=== PATIENT | male | born 1960 | race Caucasian/White ===

== ENCOUNTER 2019-08-20 01:07 | Outpatient (CLI) | payer OTHER, SELFPAY ==
[2019-08-20 17:34] LABS: SARS-CoV-2 RNA PCR Negative
== END 2019-08-20 01:08 | disposition home or self-care (01) ==
LOC: ANHCOVIDDT 01:07
PROVIDERS: PCP Internal Medicine; Visit Provider Internal Medicine Gastroenterology
DX: Z01.812 Encounter for preprocedural laboratory examination (principal); Z11.59 Encounter for screening for other viral diseases
CPT/HCPCS: 87635; C9803; U0003

== ENCOUNTER 2019-08-22 01:32 | Day surgery (SDC) | payer OTHER, SELFPAY ==
[2019-08-18 15:03] VITALS: BMI 33.0
[2019-08-22 06:59] VITALS: BP 155/65; PULSE 72; RESP 72; TEMP 37.5; O2SAT 100; BMI 33.1
--- NOTE | 2019-08-22 07:18 | P.HP_ITS ---
History of Present Illness History of Present Illness Consent: Risks, benefits, and alternatives have been discussed and questions answered. Patient agrees to proceed with procedure. Chief complaint: neoplasm screening, hx of polyps Narrative: Moise Duogherty is a 59 year old W male referred for screening colonoscopy secondary to history of colonic polyps. Patient underwent a colonoscopy over 7 years ago. He had tubular adenomas and hyperplastic polyps removed at that time. He was sent a letter 2 years ago to return for follow-up put states he had multiple testing being done for lymphadenopathy. Patient lymph node biopsy a PET scans. No definite etiology was determine. There is questionable diagnosis of sarcoidosis. In a PET scan from April of last year there is increased uptake in the sigmoid colon for 2nd pelvis was not followed up upon. Patient has no change in bowel pattern no rectal bleeding no family history of colon polyps or colon cancer. [facility] Past Medical History Medical History (Updated 08/22/19 @ 07:21 by Eugene Menard MD) Contact dermatitis Hypertension Leukopenia unknown etiology - immunology following Meds Home Medications and Allergies Home Medications Medication Instructions Recorded Confirmed Type cetirizine [Zyrtec] 10 mg PO DAILY 08/18/19 08/18/19 History doxycycline hyclate 100 mg PO BID 08/18/19 08/18/19 History guaifenesin [Mucinex] 600 mg PO BID 08/18/19 08/18/19 History hydroxychloroquine 200 mg PO BID 08/18/19 08/18/19 History metoprolol succinate 25 mg PO DAILY 08/18/19 08/18/19 History triamcinolone acetonide 1 applic TOPICAL PRN PRN 08/18/19 08/18/19 History Allergies Allergy/AdvReac Type Severity Reaction Status Date / Time No Known Allergies Allergy Mild Verified 08/22/19 07:15 Exam Const: Orientation/consciousness: patient oriented x3 Resp: Auscultation: clear to auscultation bilaterally Cardio: Rate: regular rate Rhythm: regular rhythm Heart sounds: no murmurs GI: GI Palp: Yes Soft to palpation, No Tenderness to palpation present (GI), Yes No hepatosplenomegaly present and No Palpable mass present Auscultation: normal bowel sounds Neuro: General: patient oriented x3 and no focal motor deficits Extrem: General: no pedal edema Assessment and Plan Additional Plan screening colonoscopy secondary history of colonic polyps and an abnormal PET scan with increased uptake in the sigmoid colon
--- NOTE | 2019-08-22 07:29 | WPDANESEPPF ---
Anes - Initial Pre Proc Eval Procedure: Operation Date: 08/22/19 08:30 Proposed Procedures p Screening Colonoscopy - Eugene Menard MD Date/Time: 08/22/19 07:29 Surgeon: Eugene Menard MD Pre Op Diagnosis: neoplasm screening, hx of polyps Patient Data Age: 59 Gender: M Height: 1.68 m Weight: 93.1 kg Last Vital Signs Temp 37.5 C 08/22/19 06:59 Pulse 72 08/22/19 06:59 Resp 72 H 08/22/19 06:59 BP 155/65 H 08/22/19 06:59 Pulse Ox 100 08/22/19 06:59 Allergies Allergy/AdvReac Type Severity Reaction Status Date / Time No Known Allergies Allergy Mild Verified 08/22/19 07:15 Home Medications Medication Instructions Recorded Confirmed Type cetirizine [Zyrtec] 10 mg PO DAILY 08/18/19 08/18/19 History doxycycline hyclate 100 mg PO BID 08/18/19 08/18/19 History guaifenesin [Mucinex] 600 mg PO BID 08/18/19 08/18/19 History hydroxychloroquine 200 mg PO BID 08/18/19 08/18/19 History metoprolol succinate 25 mg PO DAILY 08/18/19 08/22/19 History triamcinolone acetonide 1 applic TOPICAL PRN PRN 08/18/19 08/18/19 History Patient hx anesthesia problems: none Family hx anesthesia problems: none PMFSH Past Medical History Medical History (Updated 08/22/19 @ 07:21 by Eugene Menard MD) Contact dermatitis Hypertension Leukopenia unknown etiology - immunology following Social History Social History (Updated 08/22/19 @ 07:29 by Mark Witt DO) Alcohol use details: 4-5 drinks daily Anes - Eval Final PreProcedure Day of Procedure 08/22/19 07:29 Patient weight: obese Heart: regular rate and rhythm Lungs: clear to auscultation and normal air movement Airway: Mallampati scale class II Neurological: alert and oriented Last oral intake: >/= 8 hours ASA classification: III Emergent: no Anesthetic plan: proceed Anesthesia type and monitoring: general GIVS and standard monitoring Informed Consent: The patient's anesthetic plan and its attendant risks and benefits were discussed with the patient/family/POA. Questions were solicited and answers provided to the satisfaction of the patient/family/POA.
[2019-08-22] MEDS: LACTATED RINGERS 1,000 ML 150 ML IV CONT (07:30)
[2019-08-22 08:45] VITALS: BP 109/56; PULSE 72; RESP 13; O2SAT 97
[2019-08-22 08:55] VITALS: BP 111/62; PULSE 74; RESP 21; O2SAT 98
[2019-08-22 09:01] VITALS: BP 126/61; PULSE 67; RESP 14; O2SAT 98
== END 2019-08-22 09:19 | disposition home or self-care (01) ==
PROVIDERS: PCP Internal Medicine; Visit Provider Internal Medicine Gastroenterology
PROC: 0DJD8ZZ Inspection of Lower Intestinal Tract, Via Natural or Artificial Opening Endoscopic (ICD-10-PCS; CPT 45378; principal; 2019-08-22 08:30)
DX: Z12.11 Encounter for screening for malignant neoplasm of colon (principal); D12.5 Benign neoplasm of sigmoid colon; K62.1 Rectal polyp; I10 Essential (primary) hypertension; K64.8 Other hemorrhoids; K64.4 Residual hemorrhoidal skin tags
CPT/HCPCS: 45385; 88305; J2704; J7120